=== PATIENT | female | born 1975 | race Caucasian/White ===

== ENCOUNTER 2023-08-12 20:44 | Inpatient (IN) | payer MEDICAID, SELFPAY ==
[2023-08-12 20:46] VITALS: BP 158/103; PULSE 131; RESP 16; TEMP 36.4; O2SAT 97; BMI 25.8
[2023-08-12 21:44] LABS: Absolute Lymphocyte Count 1.87 X10^3/uL (0.83-4.51); Absolute Neutrophil Count 2.2 X10^3/uL (2.0-7.7); Basophil# 0.03 X10^3/uL; Basophil% 0.6 % (0-1); Eosinophil# 0.06 X10^3/uL; Eosinophils% 1.3 % (0-5); Hematocrit 42.5 % (37-47); Hemoglobin 14.3 g/dL (12.0-15.0); Lymphocyte # 1.87 X10^3/ul (0.83-4.51); Lymphocyte % 40.2 % (19-41); Mean Corp Hgb Conc 33.6 g/dL (32-36); Mean Corpuscular Hgb 31.7 pg (27.0-32.0); Mean Corpuscular Volume 94.2 fL (81-99); Mean Platelet Vol. 10.1 fl (6.2-12.0); Monocyte# 0.46 X10^3/uL; Monocyte% 9.9 % (0-10); NRBC Flagged by Analyzer 0 % (0-5); Neutrophil # 2.22 X10^3/uL (2.7-7.7); Neutrophil % 47.8 % (47-70); Platelet Count 280 K/mm3 (150-450); RBC Distribution Width CV 12.5 % (11.6-14.6); Red Blood Count 4.51 M/mm3 (4.2-5.4); White Blood Count 4.7 K/mm3 (4.4-11.0)
[2023-08-12 21:56] LABS: Internal QC Validated? YES +Cl - CLEAR BKGD; Pregnancy, Serum, hCG Quali. NEGATIVE Negative
[2023-08-12 21:56] LABS: International Normalized Ratio 1.1; Prothrombin Time (Protime)PT. 13.8 SECONDS (11.7-14.9)
[2023-08-12 21:59] VITALS: BP 147/74; PULSE 115; RESP 19; TEMP 36.6; O2SAT 97
[2023-08-12 22:01] LABS: AST(SGOT) 16 U/L (15-37); Alanine Aminotransfer ALT/SGPT 13 U/L (13-56); Albumin, Serum 3.7 g/dL (3.2-5.0); Alkaline Phosphatase 65 U/L (45-117); Anion Gap 8 (5-15); BUN 5 mg/dL (7-18); BUN/Creat Ratio 6.8 RATIO (10-20); Bilirubin, Direct 0.21 mg/dL (0.00-0.30); Calcium,Total 8.3 mg/dL (8.5-10.1); Chloride 105 mmol/L (98-107); Creatinine, Serum 0.73 mg/dL (0.55-1.02); EST Glomerular Filtration Rate 90 mL/min (>60); Est Glom Filt Rate - Afr Amer 109 mL/min (>60); Estimated Creatinine Clearance 97.17 ml/min; Globulin 3.6 g/dL (2.2-4.2); Glucose 109 mg/dL (74-106); Potassium 3.3 mmol/L (3.5-5.1); Protein, Total 7.3 g/dL (6.4-8.2); Sodium Level 137 mmol/L (136-145)
[2023-08-12 22:04] LABS: Amphetamine Urine VISTA NEGATIVE (<1000 ng/mL); Barbiturate Urine VISTA NEGATIVE (< 200 ng/mL); Benzodiazepine Urine VISTA NEGATIVE (< 200 ng/mL); Cocaine Urine VISTA POSITIVE (< 300 ng/mL); Ecstacy Urine VISTA NEGATIVE (< 500 ng/mL); Methadone Urine VISTA NEGATIVE (< 300 ng/mL); PCP Urine VISTA NEGATIVE (< 25 ng/mL); THC Urine VISTA NEGATIVE (< 50 ng/mL); Vista UDS pH Range 6
--- NOTE | 2023-08-12 22:05 | EX.ED.SAOD ---
HPI History of Present Illness Chief Complaint: Substance Abuse Informant: patient Narrative Narrative: 48-year-old female presenting to the emergency room requesting detox from crack cocaine and alcohol. Patient states that she only drinks when she uses crack which is every day. Patient states that she does not like doing any drugs or alcohol but has a compulsion to do it. She states that she wishes to be like other attics would like their drugs. Patient seems relieved when I tell her that most attics do not enjoy doing their drugs. Patient denies any current legal or upcoming court dates. She denies any suicidal homicidal ideation. Patient states she is currently intoxicated. [facility] Medical History Alcohol abuse Substance abuse Anxiety Hepatitis Smoker Asthma Seizures Home Medications ?Medication ?Instructions ?Recorded ?Last Taken ?Type albuterol sulfate 90 mcg/actuation 2 inh inhalation Q8H PRN wheezy 08/12/23 Unknown History aerosol inhaler Allergy/AdvReac Type Severity Reaction Status Date / Time aspirin Allergy Mild Rash Verified 08/12/23 20:46 Social History Smoking Status: Current every day smoker tobacco type: cigarettes ROS ROS ED Constitutional Constitutional ED: Denies chills, fever(s) or weight loss Eyes Eyes: Denies change in vision or diplopia ENT ENT ED: Denies ear pain, rhinorrhea or sore throat Cardiovascular Cardiovascular: Denies chest pain, orthopnea, palpitations or racing heartbeat Respiratory/Chest Respiratory/Chest: Denies cough, dyspnea or orthopnea Gastrointestinal Gastrointestinal: Denies abdominal pain, diarrhea, nausea or vomiting Genitourinary Genitourinary ED: Denies dysuria, hematuria or urinary frequency Musculoskeletal Musculoskeletal: Denies arthralgias or myalgias Integumentary Denies abscess or rash Neurologic Neurologic: Denies headache(s) or weakness Psychiatric Psychiatric: Reports depression; Denies anxiety, suicidal ideation or suicidal thoughts Endocrine Endocrinology: Denies polydipsia, polyphagia or polyuria Allergic/Immunologic Allergic/Immunologic ED: Denies mouth swelling, tongue swelling or urticaria EXAM Physical Exam Const Vital Signs: 08/12/23 20:46 08/12/23 21:59 Temperature 97.6 F L 97.9 F Temperature Source Temporal Pulse Rate 131 H 115 H Respiratory Rate 16 19 H Blood Pressure 158/103 H 147/74 H Blood Pressure Mean 121 98 Pulse Ox 97 97 Oxygen Delivery Method Room Air Positive well nourished and well developed General Appearance ED: well developed HEENT Reports normocephalic, head/scalp atraumatic and moist mucous membranes Eyes PERRL and EOMs intact bilaterally Neck no lymphadenopathy, supple and no JVD Resp normal respiratory effort and clear to auscultation bilaterally Cardio regular rate, regular rhythm and no murmurs GI normal to inspection, nondistended, normoactive bowel sounds and non-tender Palpation: soft Back/Spine no CVA tenderness and normal ROM Extremity normal to inspection General Extremety ED: Negative for edema General Extremity: Negative for edema Neuro oriented x3 and CN's II-XII intact bilaterally Sensorium / Orientation: alert Motor Exam: strength 5/5 throughout Psych mental status grossly normal Psych Narrative: No suicidal homicidal ideation Mood & Affect: depressed and tearful; Negative for anxious Skin no rashes or lesions noted and no wounds MDM MDM MDM Narrative Medical decision making narrative: ED addiction order set was utilized. Patient is demonstrating an alcohol level of 180. Urine drug screen is positive for cocaine. White count is 4.7 hemoglobin 14.3 INR 1.1. Liver enzymes are unremarkable test is negative. Creatinine is 0.73. I will speak with the hospitalist regarding admission for detox program History & Record Review Discussion w/independent historian: Patient Lab Data Attestation: I reviewed the patient's lab results. Labs: Laboratory Results - last 24 hr 08/12/23 08/12/23 08/12/23 21:31 21:39 21:40 WBC 4.7 RBC 4.51 Hgb 14.3 Hct 42.5 MCV 94.2 MCH 31.7 MCHC 33.6 RDW Std Deviation 43.0 RDW Coeff of Ashley 12.5 Plt Count 280 MPV 10.1 Immature Gran % (Auto) 0.200 Neut % (Auto) 47.8 Lymph % (Auto) 40.2 [place] % (Auto) 9.9 Eos % (Auto) 1.3 Baso % (Auto) 0.6 Absolute Neuts (auto) 2.2 Absolute Lymphs (auto) 1.87 Nucleated RBC % 0 PT 13.8 INR 1.1 Sodium 137 Potassium 3.3 L Chloride 105 Carbon Dioxide 24.0 Anion Gap 8 BUN 5 L Creatinine 0.73 Estim Creat Clear Calc 97.17 Est GFR (MDRD) Af Amer 109 Est GFR (MDRD) Non-Af 90 BUN/Creatinine Ratio 6.8 L Glucose 109 H Calcium 8.3 L Total Bilirubin 0.80 Direct Bilirubin 0.21 AST 16 ALT 13 Alkaline Phosphatase 65 Total Protein 7.3 Albumin 3.7 Globulin 3.6 Serum , Qual NEGATIVE Urine Opiates Screen NEGATIVE Urine Methadone Screen NEGATIVE Ur Barbiturates Screen NEGATIVE Ur Phencyclidine Scrn NEGATIVE Ur Amphetamines Screen NEGATIVE MDMA (Ecstasy) Screen NEGATIVE U Benzodiazepines Scrn NEGATIVE Urine Cocaine Screen POSITIVE H U Cannabinoids Screen NEGATIVE Ur Drug Screen Comment Ethyl Alcohol 180.0 Management Discussion w/another healthcare provider: Hospitalist Discharge Plan Triage Chief Complaint: Substance Abuse ED Provider: Delmar Pizarro Dx/Rx/DC Orders Prescriptions: No Action albuterol sulfate 90 mcg/actuation HFA aerosol inhaler 2 inh inhalation Q8H PRN (Reason: wheezy) Primary Care Provider: Care Physician,No Primary Referrals: Care Physician,No Primary [Primary Care Provider] - Print Language: Welsh
--- NOTE | 2023-08-12 23:01 | PCM.HP.STD ---
HPI - General General Date of Admission: 08/12/23 Date of Service: 08/12/23 Chief Complaint: Wants Help with EtOH and Crack Detox. HPI Narrative JUAN NIELSEN, is a 48 F with a past medical history of tobacco abuse, chronic EtOH abuse daily, chronic 'Crack' cocaine abuse daily, history of asthma, history of seizures, history of hepatitis C and history of abnormal Pap smear with LGSIL (2012) who presents to [facility] ER complaining of wanting help with EtOH and Crack detox. Ms. Nielsen reports her symptoms began a few hours prior to admission when she decided to stop drinking and using crack and began to worry that she would experience early symptoms of withdrawal so she decided to come in for further evaluation and treatment. She went on to state that she only drinks to deal with the guilt of being unable to stop using cocaine with patient obviously intoxicated during her evaluation in the ER. She denies any impending legal difficulties or upcoming court dates. She also denies suicidal or homicidal ideation. There is no report of fever, chills, nausea, vomiting, diarrhea, constipation, chest pain or shortness of breath but she does admit to chronic depression and anxiety that are unchanged from previous because they seem to be stubbornly resistant to dual treatment with her alcohol and crack regimen. In the ER she was noted to have an elevated EWELINA of 180 mg/dL consistent with acute alcohol intoxication in the setting of chronic alcohol abuse complicated by impending cocaine withdrawal and laboratory evidence of hypokalemia of 3.3 mmol/L present on admission and she was then admitted to the general medical floor for ongoing care for status expected to be greater than 2 midnights. [facility] Medical History Alcohol abuse Substance abuse Anxiety Hepatitis Smoker Asthma Seizures Medical History no medical history no medical history Home Medications ?Medication ?Instructions ?Recorded ?Last Taken ?Type albuterol sulfate 90 mcg/actuation 2 inh inhalation Q8H PRN wheezy 08/12/23 Unknown History aerosol inhaler Allergy/AdvReac Type Severity Reaction Status Date / Time aspirin Allergy Mild Rash Verified 08/12/23 20:46 Social History Smoking Status: Current every day smoker tobacco type: cigarettes ROS ROS Narrative Review of systems: General: Patient denies fever or chills HENT: Denies headache, denies stuffy nose, denies sore throat EYES: Denies changes in vision or discharge from eyes. Resp: Denies cough, denies shortness of breath Cardiac: Denies chest pain, palpitations or racing. GI: Denies abdominal pain, denies changes in bowel, denies nausea or vomiting : Denies changes in urination Extremity: Denies swelling Musculoskeletal: Feels somewhat generally weak and unwell but denies arthralgias or myalgias. Neuro: Patient denies headache, paresthesias or focal neurologic weakness. Heme: Denies any bleeding or bruising Skin: Denies rashes Psychiatric: No complaints voiced related uncontrolled depression or anxiety. Endocrine: No polyuria, polydipsia or polyphagia. The rest of the 14 point ROS was negative except for positives in HPI. Vital Signs Vital Signs Vital Signs: 08/12/23 20:46 08/12/23 21:59 Temperature 97.6 F L 97.9 F Temperature Source Temporal Pulse Rate 131 H 115 H Respiratory Rate 16 19 H Blood Pressure 158/103 H 147/74 H Blood Pressure Mean 121 98 Pulse Ox 97 97 Oxygen Delivery Method Room Air Weight Weight: 160 lb Body Mass Index (BMI) 25.8 Physical Exam Const alert, oriented x3, no apparent distress and average body habitus Constitutional Narrative: Patient is intoxicated and appears unkempt. General Appearance: cooperative HEENT normocephalic, head/scalp atraumatic, hearing grossly normal bilaterally and moist oral mucous membranes Eyes PERRL and EOMs intact bilaterally Eyes Narrative: Sclerae injected. Neck no lymphadenopathy and supple Resp normal respiratory effort, no retractions, no use of accessory muscles and clear to auscultation bilaterally Cardio regular rate and regular rhythm GI normal to inspection, nondistended, normoactive bowel sounds, soft to palpation, non-tender and non-distended Extremity normal to inspection, full ROM and no clubbing, cyanosis or edema Skin Skin Narrative: Patient has no evidence of abscess, rash or jaundice. Neuro oriented x3, CN's II-XII intact bilaterally, moves all extremities and no focal motor deficits Sensorium / Orientation: awake, alert, oriented to person, oriented to place and oriented to time Speech: speech normal Psych Mood & Affect: depressed and anxious Results Medical Records Data Attestation: I reviewed the patient's medical records Lab / Micro Data Attestation: I reviewed the patient's lab results. 08/12/23 21:31 08/12/23 21:31 Labs: Laboratory Results - last 24 hr 08/12/23 21:31: WBC 4.7, RBC 4.51, Hgb 14.3, Hct 42.5, MCV 94.2, MCH 31.7, MCHC 33.6, RDW Std Deviation 43.0, RDW Coeff of Ashley 12.5, Plt Count 280, MPV 10.1, Immature Gran % (Auto) 0.200, Neut % (Auto) 47.8, Lymph % (Auto) 40.2, [place] % (Auto) 9.9, Eos % (Auto) 1.3, Baso % (Auto) 0.6, Absolute Neuts (auto) 2.2, Absolute Lymphs (auto) 1.87, Nucleated RBC % 0, Sodium 137, Potassium 3.3 L, Chloride 105, Carbon Dioxide 24.0, Anion Gap 8, BUN 5 L, Creatinine 0.73, Estim Creat Clear Calc 97.17, Est GFR (MDRD) Af Amer 109, Est GFR (MDRD) Non-Af 90, BUN/Creatinine Ratio 6.8 L, Glucose 109 H, Calcium 8.3 L, Total Bilirubin 0.80, Direct Bilirubin 0.21, AST 16, ALT 13, Alkaline Phosphatase 65, Total Protein 7.3, Albumin 3.7, Globulin 3.6, Serum , Qual NEGATIVE, Ethyl Alcohol 180.0 08/12/23 21:39: Urine Opiates Screen NEGATIVE, Urine Methadone Screen NEGATIVE, Ur Barbiturates Screen NEGATIVE, Ur Phencyclidine Scrn NEGATIVE, Ur Amphetamines Screen NEGATIVE, MDMA (Ecstasy) Screen NEGATIVE, U Benzodiazepines Scrn NEGATIVE, Urine Cocaine Screen POSITIVE H, U Cannabinoids Screen NEGATIVE, Ur Drug Screen Comment 08/12/23 21:40: PT 13.8, INR 1.1 Assessment & Plan Assessment/Plan (1) Alcohol intoxication: QUALIFIERS: Complication of substance-induced condition: uncomplicated Qualified Code(s): F10.920 - Alcohol use, unspecified with intoxication, uncomplicated (2) Alcohol abuse: (3) Cocaine abuse: (4) Depression with anxiety: (5) Hypokalemia: (6) Tobacco abuse: (7) Hepatitis: PLAN: Plan 1. Acute alcohol intoxication; evidenced by EWELINA of 180 mg/dL present on admission in the setting of chronic alcohol abuse with patient requesting admission for drug detoxification - Admit to general medical floor for treatment under the alcohol detoxification regimen primarily consisting of phenobarbital taper. Alcohol cessation will be strongly encouraged. 2. Chronic 'Crack' cocaine abuse daily complicating #1 - 'Crack' cocaine cessation will be strongly encouraged. 3. Tobacco abuse compounding #1 & #2 - Tobacco cessation will be strongly encouraged with Nicotine patch offered to control cravings. 4. Depression with anxiety adding to the pathology of #1 - #3 - Patient currently self-medicating with the regimen outlined above with relatively poor insight into her complex psychological issues. She will be encouraged to follow up with psychiatry when she achieves sobriety for a more potentially effective treatment regimen. 5. Mild Hypokalemia of 3.3 mmol/L present on admission - Give supplemental KCl and then recheck BMP in the AM to ensure improvement. 6. History of asthma - Stable with no evidence of flare at this time. Continue as needed nebulizers. 7. History of seizures - Noted with report of recent seizure activity. 8. History of hepatitis C - Noted. She will be encouraged to follow up with GI for treatment when she achieves sobriety. 9. History of abnormal Pap smear with LGSIL (2012) - Noted for the sake of completeness. 10. DVT prophylaxis - Lovenox 40 mg sq daily. Total time: Approximately 75 minutes. Charges/Coding Visit Charges Inpatient E&M: 16720 Init Hosp L3
[2023-08-12 23:51] VITALS: BMI 23.1
[2023-08-12 23:55] VITALS: BP 120/74; PULSE 82; RESP 18; TEMP 36.8; O2SAT 97
[2023-08-13] VITALS (7 sets, daily range): BP systolic 96–123; BP diastolic 51–79; PULSE 60–88; RESP 16–18; TEMP 36.6–36.9; O2SAT 95–100; BMI 24.7
[2023-08-13] MEDS: 0.9% Saline Lock 10 ML Syringe IV (00:19)
[2023-08-13] MEDS: KCL 20MEQ in 0.9% NS 20 MEQ/1,000 ML IV.SOLN. 100 MEQ IV ×3 (00:19→19:49)
[2023-08-13] MEDS: Ondansetron 8 MG Tablet PO (00:19)
[2023-08-13] MEDS: Potassium Chloride Oral Tablet 20 MEQ 60 MEQ PO (00:20)
[2023-08-13] MEDS: Phenobarbital 32.4 MG Tablet 64.8 MG PO ×7 (00:20→23:48)
[2023-08-13 06:06] LABS: Absolute Lymphocyte Count 1.89 X10^3/uL (0.83-4.51); Basophil# 0.04 X10^3/uL; Basophil% 0.7 % (0-1); Eosinophil# 0.12 X10^3/uL; Eosinophils% 2.2 % (0-5); Hematocrit 38.2 % (37-47); Hemoglobin 12.8 g/dL (12.0-15.0); Lymphocyte # 1.89 X10^3/ul (0.83-4.51); Lymphocyte % 33.9 % (19-41); Mean Corp Hgb Conc 33.5 g/dL (32-36); Mean Corpuscular Hgb 32.2 pg (27.0-32.0); Mean Corpuscular Volume 96.2 fL (81-99); Mean Platelet Vol. 10.7 fl (6.2-12.0); NRBC Flagged by Analyzer 0 % (0-5); Neutrophil # 3.02 X10^3/uL (2.7-7.7); Platelet Count 232 K/mm3 (150-450); RBC Distribution Width CV 12.8 % (11.6-14.6); RBC Distribution Width SD 45.1 fl (35.1-43.9); Red Blood Count 3.97 M/mm3 (4.2-5.4); White Blood Count 5.6 K/mm3 (4.4-11.0)
[2023-08-13 06:45] LABS: ALB/GLOB Ratio 0.9 RATIO (0.9-2.4); AST(SGOT) 11 U/L (15-37); Alanine Aminotransfer ALT/SGPT 15 U/L (13-56); Alkaline Phosphatase 55 U/L (45-117); Anion Gap 7 (5-15); BUN 10 mg/dL (7-18); BUN/Creat Ratio 12.6 RATIO (10-20); Calcium,Total 7.9 mg/dL (8.5-10.1); Chloride 109 mmol/L (98-107); EST Glomerular Filtration Rate 82 mL/min (>60); Est Glom Filt Rate - Afr Amer 99 mL/min (>60); Estimated Creatinine Clearance 81.38 ml/min; Globulin 3.2 g/dL (2.2-4.2); Glucose 126 mg/dL (74-106); Magnesium 1.7 mg/dL (1.6-2.6); Phosphorus 3.2 mg/dL (2.5-4.9); Potassium 3.7 mmol/L (3.5-5.1); Protein, Total 6.2 g/dL (6.4-8.2); Sodium Level 139 mmol/L (136-145); Thyroid Stim Hormone (TSH) 1.52 uIU/mL (0.358-3.74)
--- NOTE | 2023-08-13 08:07 | PN.HOSP_ITS ---
Reason for Visit Reason for Visit: Diagnoses Hypokalemia (08/12/23) Alcohol abuse, uncomplicated (08/12/23) Alcohol use, unspecified with intoxication, uncomplicated (08/12/23) Cocaine abuse, uncomplicated (08/12/23) Other specified anxiety disorders (08/12/23) Inflammatory liver disease, unspecified (08/12/23) Tobacco use (08/12/23) Objective Data Objective Data Vital Signs: Vital Signs Temp Pulse Resp BP Pulse Ox O2 Del Method 98.3 F 79 18 106/79 98 Room Air 08/13/23 04:24 08/13/23 04:24 08/13/23 04:24 08/13/23 04:24 08/13/23 04:24 08/13/23 04:24 Oxygen Delivery Method Room Air Weight: 153 lb 14.122 oz Body Mass Index (BMI) 24.7 Intake & Output: Intake and Output for Last 24 Hours 08/11/23 08/12/23 08/13/23 23:59 23:59 23:59 Intake Total 300 / 300 Balance 300 / 300 Lab / Micro Data 08/13/23 05:08 08/13/23 05:08 Labs: Laboratory Results - last 24 hr 08/12/23 21:31: WBC 4.7, RBC 4.51, Hgb 14.3, Hct 42.5, MCV 94.2, MCH 31.7, MCHC 33.6, RDW Std Deviation 43.0, RDW Coeff of Ashley 12.5, Plt Count 280, MPV 10.1, Immature Gran % (Auto) 0.200, Neut % (Auto) 47.8, Lymph % (Auto) 40.2, [place] % (Auto) 9.9, Eos % (Auto) 1.3, Baso % (Auto) 0.6, Absolute Neuts (auto) 2.2, Absolute Lymphs (auto) 1.87, Nucleated RBC % 0, Sodium 137, Potassium 3.3 L, Chloride 105, Carbon Dioxide 24.0, Anion Gap 8, BUN 5 L, Creatinine 0.73, Estim Creat Clear Calc 97.17, Est GFR (MDRD) Af Amer 109, Est GFR (MDRD) Non-Af 90, B UN/Creatinine Ratio 6.8 L, Glucose 109 H, Calcium 8.3 L, Total Bilirubin 0.80, Direct Bilirubin 0.21, AST 16, ALT 13, Alkaline Phosphatase 65, Total Protein 7.3, Albumin 3.7, Globulin 3.6, Serum , Qual NEGATIVE, Ethyl Alcohol 180.0 08/12/23 21:39: Urine Opiates Screen NEGATIVE, Urine Methadone Screen NEGATIVE, Ur Barbiturates Screen NEGATIVE, Ur Phencyclidine Scrn NEGATIVE, Ur Amphetamines Screen NEGATIVE, MDMA (Ecstasy) Screen NEGATIVE, U Benzodiazepines Scrn NEGATIVE, Urine Cocaine Screen POSITIVE H, U Cannabinoids Screen NEGATIVE, Ur Drug Screen Comment 08/12/23 21:40: PT 13.8, INR 1.1 08/13/23 05:08: WBC 5.6, RBC 3.97 L, Hgb 12.8, Hct 38.2, MCV 96.2, MCH 32.2 H, MCHC 33.5, RDW Std Deviation 45.1 H, RDW Coeff of Ashley 12.8, Plt Count 232, MPV 10.7, Immature Gran % (Auto) 0.200, Neut % (Auto) 54.0, Lymph % (Auto) 33.9, [place] % (Auto) 9.0, Eos % (Auto) 2.2, Baso % (Auto) 0.7, Absolute Neuts (auto) 3.0, Absolute Lymphs (auto) 1.89, Nucleated RBC % 0, Sodium 139, Potassium 3.7, Chloride 109 H, Carbon Dioxide 23.0, Anion Gap 7, BUN 10, Creatinine 0.80, Estim Creat Clear Calc 81.38, Est GFR (MDRD) Af Amer 99, Est GFR (MDRD) Non-Af 82, BUN/Creatinine Ratio 12.6, Glucose 126 H, Calcium 7.9 L, Phosphorus 3.2, Magnesium 1.7, Total Bilirubin 0.80, AST 11 L, ALT 15, Alkaline Phosphatase 55, Total Protein 6.2 L, Albumin 3.0 L, Globulin 3.2, Albumin/Globulin Ratio 0.9, TSH 1.52 Physical Exam Narrative Seen and examined. Patient was using IVDA, opioids in the past. Has history of chronic hep C found during screening for blood transfusion donation. She said she started on hep C medication in the past but did not complete it. Complains of bilateral posterior pelvic pain in gluteal/sacral region Physical exam General: Alert, Oriented x3, Cooperative. BMI 24.8 kg/m? HEENT: Atraumatic, PERRLA, EOMI, Normocephalic Oral: No Gingival or Mucosal Lesions/ Ulcerations Neck: Supple, No JVD, Negative Carotid Bruits Chest wall/Lungs: Air entry diminished in bilateral lung bases. No crepitation/rhonchi Cardiovascular: Regular rate, Regular Rhythm, Normal S1, Normal S2, No M/G/R Abdomen: Liver not enlarged. Bowel Sounds Present, Soft, Non Tender, Non- Distended : No dysuria. No renal angle tenderness. No suprapubic tenderness. Extremities: No edema, Capillary Refill Less than 3 Seconds Skin: No rashes, No breakdown Musculoskeletal: No Tenderness to Palpation of Joints or Extremities. No tremors Neurological: Cranial nerves II-XII grossly intact, DTR 2+/4. No acute focal neurological deficit. Psych/Mental Status: Flat affect Assessment & Plan Assessment/Plan (1) Alcohol intoxication: QUALIFIERS: Complication of substance-induced condition: u ncomplicated Qualified Code(s): F10.920 - Alcohol use, unspecified with intoxication, uncomplicated (2) Alcohol abuse: (3) Cocaine abuse: (4) Depression with anxiety: (5) Hypokalemia: (6) Tobacco abuse: (7) Hepatitis: PLAN: Plan 48-year-old female with was admitted after requested alcohol detox with history of chronic alcohol use disorder and substance use disorder. 1. Mild acute alcohol withdrawal syndrome with history of chronic alcohol use disorder with intoxication, dependence and tolerance- Admit to general medical floor for treatment under the alcohol detoxification regimen primarily consisting of phenobarbital taper. Alcohol cessation will be strongly encouraged. 08/12: Patient is Sterets she drinks about 1 L of Malt every day. She also uses crack cocaine along with smoking. She quit opioids/IVDA in the past. 2. Chronic 'Crack' cocaine abuse: Advised to quit it. 3. Tobacco abuse - Tobacco cessation will be strongly encouraged with Nicotine patch offered to control cravings. 4. Depression with anxiety adding to the pathology of #1 - #3 - Patient currently self-medicating with the regimen outlined above with relatively poor insight into her complex psychological issues. She will be encouraged to follow up with psychiatry when she achieves sobriety for a more potentially effective treatment regimen. 5. Mild Hypokalemia of 3.3 mmol/L present on admission - Give supplemental KCl and then recheck BMP in the AM to ensure improvement. 6. History of asthma - Stable with no evidence of flare at this time. Continue as needed nebulizers. 7. History of seizures - Noted with report of recent seizure activity. 8. History of hepatitis C - Noted. She will be encouraged to follow up with GI for treatment when she achieves sobriety. 9. History of abnormal Pap smear with LGSIL (2012) - Noted for the sake of completeness. 10. DVT prophylaxis - Lovenox 40 mg sq daily. Charges/Coding Visit Charges Inpatient E&M: 78788 Subs Hosp L2
[2023-08-13] MEDS: Thiamine Hydrochloride 100 MG Tablet PO (08:44)
[2023-08-13] MEDS: Folic Acid 1 MG Tablet PO (08:45)
[2023-08-14] MEDS: Gabapentin 300 MG Capsule PO (00:04)
[2023-08-14] MEDS: Phenobarbital 32.4 MG Tablet 64.8 MG PO ×5 (04:01→20:20)
[2023-08-14] MEDS: KCL 20MEQ in 0.9% NS 20 MEQ/1,000 ML IV.SOLN. 100 MEQ IV (06:22)
[2023-08-14] MEDS: Thiamine Hydrochloride 100 MG Tablet PO (09:22)
[2023-08-14] MEDS: Folic Acid 1 MG Tablet PO (09:22)
[2023-08-14 09:26] VITALS: BP 98/52; PULSE 61; RESP 18; TEMP 36.5; O2SAT 98
--- NOTE | 2023-08-14 12:04 | PN.HOSP_ITS ---
Reason for Visit Reason for Visit: Diagnoses Hypokalemia (08/12/23) Alcohol abuse, uncomplicated (08/12/23) Alcohol use, unspecified with intoxication, uncomplicated (08/12/23) Cocaine abuse, uncomplicated (08/12/23) Other specified anxiety disorders (08/12/23) Inflammatory liver disease, unspecified (08/12/23) Tobacco use (08/12/23) Objective Data Objective Data Vital Signs: Vital Signs Temp Pulse Resp BP Pulse Ox O2 Del Method 97.7 F L 61 18 98/52 L 98 Room Air 08/14/23 09:26 08/14/23 09:26 08/14/23 09:26 08/14/23 09:26 08/14/23 09:26 08/14/23 09:47 Oxygen Delivery Method Room Air Weight: 153 lb 14.122 oz Body Mass Index (BMI) 24.7 Intake & Output: Intake and Output for Last 24 Hours 08/12/23 08/13/23 08/14/23 23:59 23:59 23:59 Intake Total 3050.00 / 3050.00 1000 / 1000 Balance 3050.00 / 3050.00 1000 / 1000 Lab / Micro Data 08/13/23 05:08 08/13/23 05:08 Physical Exam Narrative Seen and examined. Patient was using IVDA, opioids in the past. Has history of chronic hep C found during screening for blood transfusion donation. She said she started on hep C medication in the past but did not complete it. Complains of bilateral posterior pelvic pain in gluteal/sacral region Physical exam General: Alert, Oriented x3, Cooperative. BMI 24.8 kg/m? HEENT: Atraumatic, PERRLA, EOMI, Normocephalic Oral: No Gingival or Mucosal Lesions/ Ulcerations Neck: Supple, No JVD, Negative Carotid Bruits Chest wall/Lungs: Air entry diminished in bilateral lung bases. No crepitation/rhonchi Cardiovascular: Regular rate, Regular Rhythm, Normal S1, Normal S2, No M/G/R Abdomen: Liver not enlarged. Bowel Sounds Present, Soft, Non Tender, Non- Distended : No dysuria. No renal angle tenderness. No suprapubic tenderness. Extremities: No edema, Capillary Refill Less than 3 Seconds Skin: No rashes, No breakdown Musculoskeletal: No Tenderness to Palpation of Joints or Extremities. No tremors Neurological: Cranial nerves II-XII grossly intact, DTR 2+/4. No acute focal neurological deficit. Psych/Mental Status: Flat affect Assessment & Plan Assessment/Plan (1) Alcohol intoxication: QUALIFIERS: Complication of substance-induced condition: u ncomplicated Qualified Code(s): F10.920 - Alcohol use, unspecified with intoxication, uncomplicated (2) Alcohol abuse: (3) Cocaine abuse: (4) Depression with anxiety: (5) Hypokalemia: (6) Tobacco abuse: (7) Hepatitis: PLAN: Plan 48-year-old female with was admitted after requested alcohol detox with history of chronic alcohol use disorder and substance use disorder. 1. Mild acute alcohol withdrawal syndrome with history of chronic alcohol use disorder with intoxication, dependence and tolerance- Admit to general medical floor for treatment under the alcohol detoxification regimen primarily consisting of phenobarbital taper. Alcohol cessation will be strongly encouraged. 08/12: Patient is Sterets she drinks about 1 L of Malt every day. She also uses crack cocaine along with smoking. She quit opioids/IVDA in the past. 08/13: Patient complained that she has back pain over left side and feels like kidney stone. Ultrasound kidneys and bladder ordered. Kidney function creatinine is in normal range. Monitor electrolytes. 2. Chronic 'Crack' cocaine abuse: Advised to quit it. 3. Tobacco abuse - Tobacco cessation will be strongly encouraged with Nicotine patch offered to control cravings. 4. Depression with anxiety - Patient currently self-medicating with the regimen outlined above with relatively poor insight into her complex psychological issues. She will be encouraged to follow up with psychiatry when she achieves sobriety for a more potentially effective treatment regimen. 5. Mild Hypokalemia of 3.3 mmol/L present on admission - Give supplemental KCl and then recheck BMP in the AM to ensure improvement. 6. History of asthma - Stable with no evidence of flare at this time. Continue as needed nebulizers. 7. History of seizures - Noted with report of recent seizure activity. 8. History of hepatitis C - Noted. She will be encouraged to follow up with GI for treatment when she achieves sobriety. 9. History of abnormal Pap smear with LGSIL (2012) - Noted for the sake of completeness. 10. DVT prophylaxis - Lovenox 40 mg sq daily. Charges/Coding Visit Charges Inpatient E&M: 46095 Subs Hosp L2
[2023-08-14 12:16] VITALS: BP 107/54; PULSE 56; RESP 16; TEMP 36.6; O2SAT 98
--- NOTE | 2023-08-14 16:12 | ADDICTION ---
Pt was met with to complete the RAMP assessment, AUDIT, DUDIT, Mt. Status, DC Plan, and ASAM. Pt reports she has been struggling with daily alcohol and crack cocaine use for the past few years and she has been unable to fx or meet her most basic needs d/t severity of ANABEL. Pt reports she is willing to enter residential because she knows she needs help. Pt states she has been begging God to find me help for my addiction for the past six months. Pt [facility] for [facility] was completed and pt is scheduled to be screened by Angélica on Monday28.24. Pt is at high risk of relapse and she would benefit from a direct admission from the hospital to the residential facility. Addiction Medicine will help coordinate the residential screening Monday and any potential admission.
[2023-08-14 16:28] VITALS: BP 112/88; PULSE 60; RESP 18; TEMP 36.8; O2SAT 99
[2023-08-14 20:11] VITALS: BP 116/74; PULSE 71; RESP 16; TEMP 36.4; O2SAT 99
[2023-08-14] MEDS: hydrOXYzine PAM 25 MG Capsule 50 MG PO (20:20)
[2023-08-15 00:04] VITALS: BP 97/55; PULSE 69; RESP 16; TEMP 36.6; O2SAT 96
[2023-08-15] MEDS: Phenobarbital 32.4 MG Tablet 64.8 MG PO ×5 (00:45→18:52)
[2023-08-15 04:28] VITALS: BP 98/54; PULSE 59; RESP 14; TEMP 36.6; O2SAT 97
--- NOTE | 2023-08-15 06:00 | US_ITS ---
HISTORY: Left renal angle pain/back pain -- r/o kidney stone. TECHNIQUE: Whitt scale and color doppler images were obtained of the kidneys. 67 images. COMPARISON: None. FINDINGS: RIGHT KIDNEY: 11.7 cm in length with a cortical thickness of 1.2 cm. Contour and echogenicity unremarkable. No hydronephrosis. No gross renal mass demonstrated. LEFT KIDNEY: 12 cm in length with a cortical thickness of 1.2 cm. Contour and echogenicity unremarkable. No hydronephrosis. No gross renal mass demonstrated. URINARY BLADDER: Unremarkable at 222 cc with a wall thickness of 3 mm. US/Kidney and Bladder IMPRESSION: Unremarkable examination of the kidneys. Electronically Signed: Donna Don MD at 9:52 EDT ,
[2023-08-15 06:55] VITALS: O2SAT 95
[2023-08-15] MEDS: Folic Acid 1 MG Tablet PO (07:01)
[2023-08-15] MEDS: Thiamine Hydrochloride 100 MG Tablet PO (07:01)
[2023-08-15 07:27] LABS: Anion Gap 6 (5-15); BUN 20 mg/dL (7-18); BUN/Creat Ratio 31.7 RATIO (10-20); Calcium,Total 8.9 mg/dL (8.5-10.1); Chloride 108 mmol/L (98-107); Creatinine, Serum 0.63 mg/dL (0.55-1.02); EST Glomerular Filtration Rate 107 mL/min (>60); Est Glom Filt Rate - Afr Amer 130 mL/min (>60); Estimated Creatinine Clearance 103.34 ml/min; Glucose 94 mg/dL (74-106); Magnesium 1.8 mg/dL (1.6-2.6); Phosphorus 4.9 mg/dL (2.5-4.9); Sodium Level 137 mmol/L (136-145)
[2023-08-15 10:05] VITALS: BP 92/57; PULSE 58; RESP 16; TEMP 36.6; O2SAT 93
[2023-08-15] MEDS: Acetaminophen 500 MG Tablet 1000 MG PO (11:08)
[2023-08-15 13:36] VITALS: BP 103/52; PULSE 71; RESP 16; TEMP 37.1; O2SAT 98
--- NOTE | 2023-08-15 15:08 | PCM.PN.HOSP ---
Reason for Visit Reason for Visit: Diagnoses Hypokalemia (08/12/23) Alcohol abuse, uncomplicated (08/12/23) Alcohol use, unspecified with intoxication, uncomplicated (08/12/23) Cocaine abuse, uncomplicated (08/12/23) Other specified anxiety disorders (08/12/23) Inflammatory liver disease, unspecified (08/12/23) Tobacco use (08/12/23) Objective Data Objective Data Vital Signs: Vital Signs Temp Pulse Resp BP Pulse Ox O2 Del Method 98.7 F 71 16 103/52 L 98 Room Air 08/15/23 13:36 08/15/23 13:36 08/15/23 13:36 08/15/23 13:36 08/15/23 13:36 08/15/23 13:36 Oxygen Delivery Method Room Air Weight: 153 lb 14.122 oz Body Mass Index (BMI) 24.7 Intake & Output: Intake and Output for Last 24 Hours 08/13/23 08/14/23 08/15/23 23:59 23:59 23:59 Intake Total 3050.00 / 3050.00 2755 / 2995 240 / 240 Balance 3050.00 / 3050.00 2755 / 2995 240 / 240 Lab / Micro Data 08/13/23 05:08 08/15/23 06:17 Labs: Laboratory Results - last 24 hr 08/15/23 06:17: Sodium 137, Potassium 4.0, Chloride 108 H, Carbon Dioxide 23.0, Anion Gap 6, BUN 20 H, Creatinine 0.63, Estim Creat Clear Calc 103.34, Est GFR (MDRD) Af Amer 130, Est GFR (MDRD) Non-Af 107, BUN/Creatinine Ratio 31.7 H, Glucose 94, Calcium 8.9, Phosphorus 4.9, Magnesium 1.8 Radiography Diagnostic Testing: Radiology Impression Renal Ultrasound 08/15/23 06:00 IMPRESSION: Unremarkable examination of the kidneys. Electronically Signed: Donna Don MD at 9:52 EDT , Physical Exam Narrative Seen and examined. Patient was sleeping in the morning. Withdrawal symptoms are controlled. Patient to be evaluated by [facility] probably thinking of inpatient alcohol rehab. Patient used IVDA, opioids in the past. Has history of chronic hep C found during screening for blood transfusion donation. She said she started on hep C medication in the past but did not complete it. Complains of bilateral posterior pelvic pain in gluteal/sacral region, improved. Physical exam General: Alert, Oriented x3, Cooperative. BMI 24.8 kg/m? HEENT: Atraumatic, PERRLA, EOMI, Normocephalic Oral: No Gingival or Mucosal Lesions/ Ulcerations Neck: Supple, No JVD, Negative Carotid Bruits Chest wall/Lungs: Air entry diminished in bilateral lung bases. No crepitation/rhonchi Cardiovascular: Regular rate, Regular Rhythm, Normal S1, Normal S2, No M/G/R Abdomen: Liver not enlarged. Bowel Sounds Present, Soft, Non Tender, Non-Distended : No dysuria. No renal angle tenderness. No suprapubic tenderness. Extremities: No edema, Capillary Refill Less than 3 Seconds Skin: No rashes, No breakdown Musculoskeletal: No Tenderness to Palpation of Joints or Extremities. No tremors Neurological: Cranial nerves II-XII grossly intact, DTR 2+/4. No acute focal neurological deficit. Psych/Mental Status: Flat affect Assessment & Plan Assessment/Plan (1) Alcohol intoxication: QUALIFIERS: Complication of substance-induced condition: uncomplicated Qualified Code(s): F10.920 - Alcohol use, unspecified with intoxication, uncomplicated (2) Alcohol abuse: (3) Cocaine abuse: (4) Depression with anxiety: (5) Hypokalemia: (6) Tobacco abuse: (7) Hepatitis: PLAN: Plan 48-year-old female with was admitted after requested alcohol detox with history of chronic alcohol use disorder and substance use disorder. 1. Mild acute alcohol withdrawal syndrome with history of chronic alcohol use disorder with intoxication, dependence and tolerance- Admit to general medical floor for treatment under the alcohol detoxification regimen primarily consisting of phenobarbital taper. Alcohol cessation will be strongly encouraged. 08/12: Patient is Sterets she drinks about 1 L of Malt every day. She also uses crack cocaine along with smoking. She quit opioids/IVDA in the past. 08/13: Patient complained that she has back pain over left side and feels like kidney stone. Ultrasound kidneys and bladder ordered. Kidney function creatinine is in normal range. Monitor electrolytes. 08/14: Renal ultrasound reported unremarkable. Electrolytes are in normal range. Serum magnesium and phosphorus in normal range. Patient being evaluated by [facility] director of casework for possible inpatient alcohol rehab. 2. Chronic 'Crack' cocaine abuse: Advised to quit it. 3. Tobacco abuse - Tobacco cessation will be strongly encouraged with Nicotine patch offered to control cravings. 4. Depression with anxiety - Patient currently self-medicating with the regimen outlined above with relatively poor insight into her complex psychological issues. She will be encouraged to follow up with psychiatry when she achieves sobriety for a more potentially effective treatment regimen. 5. Mild Hypokalemia of 3.3 mmol/L present on admission - Give supplemental KCl and then recheck BMP in the AM to ensure improvement. 6. History of asthma - Stable with no evidence of flare at this time. Continue as needed nebulizers. 7. History of seizures - Noted with report of recent seizure activity. 8. History of hepatitis C - Noted. She will be encouraged to follow up with GI for treatment when she achieves sobriety. 9. History of abnormal Pap smear with LGSIL (2012) - Noted for the sake of completeness. 10. DVT prophylaxis - Lovenox 40 mg sq daily. Clinical Impression(s) from Imaging Studies Renal Ultrasound 08/15/23 06:00 IMPRESSION: Unremarkable examination of the kidneys. Electronically Signed: Charges/Coding Visit Charges Inpatient E&M: 99340 Subs Hosp L2
[2023-08-15] MEDS: Gabapentin 300 MG Capsule PO (18:52)
--- NOTE | 2023-08-15 21:59 | PN.HOSP_ITS ---
Hospitalist Note Notified per member of technical staff that patient is currently leaving AMA.
--- NOTE | 2023-08-15 21:59 | PCM.HOSP.N ---
Hospitalist Note Notified per staff nurse that patient is currently leaving AMA.
== END 2023-08-15 22:12 | disposition left against medical advice (07) | DRG 770 ==
LOC: ED 22:09 → MS3 08-13 00:55
PROVIDERS: Admitting Provider Internal Medicine; Emergency Provider Emergency Medicine; Visit Provider Internal Medicine
DX: F10.239 Alcohol dependence with withdrawal, unspecified (principal); E87.6 Hypokalemia; F14.10 Cocaine abuse, uncomplicated; F10.229 Alcohol dependence with intoxication, unspecified; J45.909 Unspecified asthma, uncomplicated; F32.A Depression, unspecified; F17.210 Nicotine dependence, cigarettes, uncomplicated; F41.9 Anxiety disorder, unspecified; Z79.51 Long term (current) use of inhaled steroids; Y90.6 Blood alcohol level of 120-199 mg/100 ml; Z53.29 Procedure and treatment not carried out because of patient's decision for other reasons
CPT/HCPCS: 36415; 76770; 80048; 80053; 80076; 80307; 80320; 83735; 84100; 84443; 84703; 85025; 85610; 94668; 97802; 99284; A4216; G0480